=== PATIENT | female | born 1975 | race Caucasian/White ===

== ENCOUNTER 2017-05-10 14:46 | Emergency (ER) | payer BC, OTHER ==
[~2017-05-10] VITALS: Ht 157.5 cm; Wt 58.6 kg
[~2017-05-10 14:46] MED LIST: CARD240C6 PO; CYCL-36 PO; FENT25DI TD; LISI-363 PO; LORA-392 PO; PROM25TA5 PO; PROP40TA3 PO; PROT40TA PO; SULF500T35 PO; ZOFR4TAB3 SL
[2017-05-10 15:01] VITALS: BP 161/76; PULSE 116; RESP 18; TEMP 98.7; O2SAT 100
[2017-05-10] MEDS ORDERED: PANTOPRAZOLE SODIUM 40 MG VIAL IV PUSH ONE (15:15)
[2017-05-10] MEDS ORDERED: SODIUM CHLOR 0.9% 1000 ML INJ 1,000 ML IV ONE (15:15)
[2017-05-10] MEDS ORDERED: ONDANSETRON HCL 4 MG/2 ML VIAL IV PUSH ONE (15:15)
[2017-05-10] MEDS ORDERED: SULF500T3 PO (15:19)
[2017-05-10] MEDS ORDERED: PROT40TA PO (15:19)
[2017-05-10] MEDS ORDERED: PROP60TA PO (15:19)
[2017-05-10] MEDS ORDERED: CARD120T4 PO (15:19)
[2017-05-10] MEDS ORDERED: FENT50DI T-DERMAL (15:19)
[2017-05-10] MEDS ORDERED: CYCL1TAB29 PO (15:19)
[2017-05-10] MEDS ORDERED: PROM12.54 PO (15:19)
[2017-05-10] MEDS ORDERED: DIAZ5TAB PO (15:19)
[2017-05-10] MEDS ORDERED: LISI-515 PO (15:19)
[2017-05-10 15:34] LABS: AUTOMATED NEUTROPHIL # 2.3 TH/MM3 (1.8-7.7); BASOPHIL % 0.7 % (0.0-2.0); EOSINOPHIL # 0.1 TH/MM3 (0-0.4); EOSINOPHIL % 1.7 % (0.0-4.0); HEMATOCRIT 35.7 % (35.0-46.0); HEMO FLAGS DIFF FINAL; LYMPH % 47.7 % (9.0-44.0); LYMPHOCYTE # 2.6 TH/MM3 (1.0-4.8); MEAN CELL VOLUME 84.6 FL (80.0-100.0); MEAN CORPUSCULAR HEMOGLOBIN 27.2 PG (27.0-34.0); MEAN CORPUSCULAR HGB CONC 32.1 % (32.0-36.0); MONO % 6.1 % (0.0-8.0); NEUT % 43.8 % (16.0-70.0); PLATELET COUNT 157 TH/MM3 (150-450); RED BLOOD COUNT 4.22 MIL/MM3 (4.00-5.30); RED CELL DISTRIBUTION WIDTH 15.1 % (11.6-17.2); WHITE BLOOD COUNT 5.3 TH/MM3 (4.0-11.0)
[2017-05-10 15:36] VITALS: BP 149/94; PULSE 100; RESP 20; O2SAT 100; O2SAT 99
[2017-05-10 15:42] LABS: CHLORIDE 107 MEQ/L (98-107); POTASSIUM 3.7 MEQ/L (3.5-5.1); SODIUM (NA) 140 MEQ/L (136-145)
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
[2017-05-10 15:46] LABS: ANION GAP 9 MEQ/L (5-15); BICARBONATE 24.3 MEQ/L (21.0-32.0)
[2017-05-10 15:47] LABS: BLOOD UREA NITROGEN 13 MG/DL (7-18)
[2017-05-10 15:49] LABS: ALT (GPT) 14 U/L (10-53); AST (GOT) 7 U/L (15-37); GLOMERULAR FILTRATION RATE 101 ML/MIN (>89)
[2017-05-10 15:51] LABS: TOTAL BILIRUBIN ADULT 0.3 MG/DL (0.2-1.0)
[2017-05-10 15:52] LABS: ALKALINE PHOSPHATASE 66 U/L (45-117)
[2017-05-10] MEDS ORDERED: ZOFR4TAB3 SL (15:58)
== END 2017-05-10 16:14 | disposition home or self-care (01) ==
LOC: PHED 14:46
DX: R19.7 Diarrhea, unspecified (principal); R11.10 Vomiting, unspecified; R10.13 Epigastric pain
CPT/HCPCS: 80053; 83690; 85025; 96361; 96374; 96375; 99284; C9113; J2405; J7030

== ENCOUNTER 2017-05-15 05:03 | Emergency (ER) | payer BC ==
[~2017-05-15] VITALS: Ht 157.5 cm; Wt 54.5 kg
[~2017-05-15 05:03] MED LIST changes: +CARD120T4 PO; -CARD240C6 PO; -CYCL-36 PO; +CYCL1TAB29 PO; +DIAZ5TAB PO; -FENT25DI TD; +FENT50DI T-DERMAL; -LISI-363 PO; +LISI-515 PO; -LORA-392 PO; +PROM12.54 PO; -PROM25TA5 PO; -PROP40TA3 PO; +PROP60TA PO; +SULF500T3 PO; -SULF500T35 PO
[2017-05-15 05:05] VITALS: BP 129/77; PULSE 118; RESP 16; TEMP 97.9; O2SAT 99
[2017-05-15 05:35] VITALS: BP 102/74; PULSE 83; RESP 15; O2SAT 100
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
[2017-05-15] MEDS ORDERED: SODIUM CHLORIDE 0.9% FLUSH 10 ML FLUSH IV FLUSH PRN (05:45)
[2017-05-15] MEDS ORDERED: SODIUM CHLOR 0.9% 1000 ML INJ 1,000 ML IV ONE (05:45)
[2017-05-15 06:06] LABS: AUTOMATED NEUTROPHIL # 2.7 TH/MM3 (1.8-7.7); BASOPHIL % 0.5 % (0.0-2.0); EOSINOPHIL # 0.1 TH/MM3 (0-0.4); EOSINOPHIL % 2.1 % (0.0-4.0); HEMATOCRIT 40.8 % (35.0-46.0); HEMO FLAGS DIFF FINAL; LYMPH % 35.4 % (9.0-44.0); LYMPHOCYTE # 1.8 TH/MM3 (1.0-4.8); MEAN CELL VOLUME 87.2 FL (80.0-100.0); MEAN CORPUSCULAR HEMOGLOBIN 28.1 PG (27.0-34.0); MEAN CORPUSCULAR HGB CONC 32.3 % (32.0-36.0); MONO % 7.5 % (0.0-8.0); NEUT % 54.5 % (16.0-70.0); PLATELET COUNT 155 TH/MM3 (150-450); RED BLOOD COUNT 4.68 MIL/MM3 (4.00-5.30); RED CELL DISTRIBUTION WIDTH 16.4 % (11.6-17.2)
[2017-05-15 06:34] LABS: ANION GAP 9 MEQ/L (5-15); AST (GOT) 7 U/L (15-37); BICARBONATE 26.5 MEQ/L (21.0-32.0); BLOOD UREA NITROGEN 9 MG/DL (7-18); CHLORIDE 107 MEQ/L (98-107); GLOMERULAR FILTRATION RATE 96 ML/MIN (>89); POTASSIUM 3.7 MEQ/L (3.5-5.1); SODIUM (NA) 142 MEQ/L (136-145)
[2017-05-15 06:39] LABS: ALKALINE PHOSPHATASE 73 U/L (45-117); ALT (GPT) 15 U/L (10-53); TOTAL BILIRUBIN ADULT 0.3 MG/DL (0.2-1.0)
[2017-05-15 06:55] VITALS: BP_SYST 102
== END 2017-05-15 07:26 | disposition home or self-care (01) ==
LOC: NEPC 05:03
DX: R10.11 Right upper quadrant pain (principal); R11.2 Nausea with vomiting, unspecified; R19.7 Diarrhea, unspecified; G89.29 Other chronic pain; D64.9 Anemia, unspecified; I10 Essential (primary) hypertension; E11.9 Type 2 diabetes mellitus without complications; K21.9 Gastro-esophageal reflux disease without esophagitis; K85.90 Acute pancreatitis without necrosis or infection, unspecified
CPT/HCPCS: 80053; 83690; 85025; 96360; 99284; J7030

== ENCOUNTER 2017-05-20 09:33 | Inpatient (IN) | payer BC ==
[2017-05-20] VITALS (15 sets, daily range): BP systolic 72–128; BP diastolic 46–78; PULSE 68–108; RESP 16–20; TEMP 96–97.9; O2SAT 96–100
[~2017-05-20] VITALS: Ht 162.6 cm; Wt 64.1 kg
[2017-05-20] MEDS ORDERED: GABA300C5 PO (09:42)
[2017-05-20] MEDS ORDERED: SODIUM CHLOR 0.9% 1000 ML INJ 1,000 ML IV SCH (09:57)
[2017-05-20] MEDS ORDERED: ONDANSETRON HCL 4 MG/2 ML VIAL IVP ONE (10:00)
[2017-05-20] MEDS ORDERED: SODIUM CHLORIDE 0.9% FLUSH 10 ML FLUSH IV FLUSH PRN ×2 (10:00→13:45)
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
[2017-05-20 10:20] LABS: AUTOMATED NEUTROPHIL # 3.7 TH/MM3 (1.8-7.7); BASOPHIL # 0.1 TH/MM3 (0-0.2); BASOPHIL % 1.7 % (0.0-2.0); EOSINOPHIL # 0.1 TH/MM3 (0-0.4); HEMATOCRIT 34.3 % (35.0-46.0); HEMO FLAGS DIFF FINAL; LYMPH % 33.5 % (9.0-44.0); LYMPHOCYTE # 2.3 TH/MM3 (1.0-4.8); MEAN CORPUSCULAR HEMOGLOBIN 28.1 PG (27.0-34.0); MEAN CORPUSCULAR HGB CONC 32.2 % (32.0-36.0); MONO % 9.4 % (0.0-8.0); NEUT % 53.4 % (16.0-70.0); PLATELET COUNT 178 TH/MM3 (150-450); RED BLOOD COUNT 3.94 MIL/MM3 (4.00-5.30); WHITE BLOOD COUNT 6.9 TH/MM3 (4.0-11.0)
[2017-05-20 10:28] LABS: CHLORIDE 104 MEQ/L (98-107); POTASSIUM 4.9 MEQ/L (3.5-5.1); SODIUM (NA) 138 MEQ/L (136-145)
[2017-05-20 10:32] LABS: ANION GAP 7 MEQ/L (5-15); BICARBONATE 26.9 MEQ/L (21.0-32.0); BLOOD UREA NITROGEN 10 MG/DL (7-18)
[2017-05-20 10:35] LABS: ALT (GPT) 19 U/L (10-53); AST (GOT) 21 U/L (15-37); GLOMERULAR FILTRATION RATE 103 ML/MIN (>89)
[2017-05-20 10:37] LABS: TOTAL BILIRUBIN ADULT 0.4 MG/DL (0.2-1.0)
[2017-05-20 10:38] LABS: ALKALINE PHOSPHATASE 64 U/L (45-117)
--- NOTE | 2017-05-20 10:43 | RADRPT ---
EXAM DATE/TIME: 05/20/2017 10:25 [facility] COMPARISON: CHEST SINGLE AP, January 29, 2015, 14:42. INDICATIONS : Dizziness. Weakness. Altered mental status. MEDICAL HISTORY : Hypertension. SURGICAL HISTORY : None. ENCOUNTER: Initial ACUITY: 1 day PAIN SCORE: Non-responsive. LOCATION: Bilateral chest FINDINGS: A single view of the chest demonstrates the lungs to be symmetrically aerated without evidence of mas s, infiltrate or effusion. The cardiomediastinal contours are unremarkable. Osseous structures are intact. CONCLUSION: No evidence of acute cardiopulmonary disease. Tam Barber MD on May 20, 2017 at 10:41 Board Certified Radiologist. This report was verified electronically.
--- NOTE | 2017-05-20 11:07 | RADRPT ---
EXAM DATE/TIME: 05/20/2017 10:51 [facility] COMPARISON: CT ABDOMEN & PELVIS W/O CONTRAST, February 18, 2016, 17:43. INDICATIONS : Right upper quadrant pain. ORAL CONTRAST: No oral contrast ingested. RADIATION DOSE: 7.85 CTDIvol (mGy) MEDICAL HISTORY : Hypertension. Renal failre. Colitis. SURGICAL HISTORY : Cholecystectomy. Hysterectomy.Right inguinal hernia repair. ENCOUNTER: Initial ACUITY: 1 day PAIN SCALE: 5/10 LOCATION: Right upper quadrant TECHNIQUE: Volumetric scanning of the abdomen and pelvis was performed. Using automated exposure control and ad justment of the mA and/or kV according to patient size, radiation dose was kept as low as reasonably achievable to obtain optimal diagnostic quality images. DICOM format image data is available electro nically for review and comparison. FINDINGS: LOWER LUNGS: The visualized lower lungs are clear. LIVER: Homogeneous density without lesion. There is no dilation of the biliary tree. Previous cholecystecto my. Faint density again seen in the gallbladder fossa, presumably clips and/or suture material and un changed. No fluid collections.. SPLEEN: Normal size without lesion. PANCREAS: Within normal limits. KIDNEYS: Normal in size and shape. There is no mass, stone, or hydronephrosis. ADRENAL GLANDS: Within normal limits. VASCULAR: There is no aortic aneurysm. BOWEL/MESENTERY: The stomach, small bowel, and colon demonstrate no acute abnormality. There is no free intraperitone al air or fluid. Normal appendix. ABDOMINAL WALL: Within normal limits. RETROPERITONEUM: There is no lymphadenopathy. BLADDER: No wall thickening or mass. REPRODUCTIVE: Previous hysterectomy. No free fluid. INGUINAL: There is no lymphadenopathy or hernia. MUSCULOSKELETAL: No acute bony abnormality demonstrated. CONCLUSION: 1. No acute abnormality demonstrated. 2. Previous cholecystectomy and hysterectomy. Tam Barber MD on May 20, 2017 at 11:01 Board Certified Radiologist. This report was verified electronically.
[2017-05-20] MEDS ORDERED: SODIUM CHLOR 0.9% 1000 ML INJ 1,000 ML IV ONE (12:45)
[2017-05-20] MEDS ORDERED: NALOXONE HCL 0.4 MG/ML AMP IV PRN (13:45)
[2017-05-20] MEDS ORDERED: LACTULOSE SYRUP 20 GM/30 ML CUP PO PRN (14:00)
[2017-05-20] MEDS ORDERED: SENNOSIDES 8.6 MG TAB PO PRN (14:00)
[2017-05-20] MEDS ORDERED: ONDANSETRON HCL 4 MG/2 ML VIAL IVP PRN (14:00)
[2017-05-20] MEDS ORDERED: MAGNESIUM HYDROXIDE SUSP 30 ML CUP PO PRN (14:00)
[2017-05-20] MEDS ORDERED: ePHEDrine/NS 50 MG/5 ML SYR IV PUSH ONE ×2 (14:00)
[2017-05-20 14:55] LABS: BLOOD, URINE SMALL (NEG); GLUCOSE,URINE NEG (NEG); KETONE, URINE NEG (NEG); NITRITE,URINE POS (NEG); PH, URINE 5.5 (5.0-8.5)
[2017-05-20 15:00] LABS: METHOD OF COLLECTION CLEAN CATCH; URINE COLOR YELLOW (YELLW/STRAW)
[2017-05-20] MEDS ORDERED: ENOXAPARIN SODIUM 30 MG/0.3 ML SYRINGE SQ SCH (15:00)
[2017-05-20] MEDS: SODIUM CHLOR 0.9% 1000 ML INJ 1,000 ML IV SCH ×2 (15:00→22:41)
[2017-05-20] MEDS ORDERED: BISACODYL 10 MG SUPP RECTAL PRN (15:00)
[2017-05-20 15:01] LABS: BACTERIA, URINE MANY /hpf; COMMENT (UR) CULTURE INDICATED; CULTURE IF INDICATED CULTURE INDICATED; RBC, URINE 15-19 /hpf (0-3); SQUAMOUS EPITHELIAL CELL URINE > 8 /hpf (0-5)
[2017-05-20] MEDS ORDERED: diphenhydrAMINE HCL 50 MG/ML VIAL IM PRN (16:30)
[2017-05-20] MEDS ORDERED: ALPRAZolam 0.25 MG TAB PO PRN (16:45)
--- NOTE | 2017-05-20 16:50 | HHI.HP ---
[facility] Service [facility] Primary Care Physician Amira Camejo DO Admission Diagnosis Hypotension Diagnoses: Travel History International Travel<30 Days: No Contact w/Intl Traveler <30 Da: No Traveled to Known Affected Are: No History of Present Illness Mrs. Rogers is a 42-year-old female. She came into the emergency department after being found by police officers in parking lot at a hardware store. She reports she was sitting in her car because she felt ill and did not feel safe driving. Upon arrival she is found to be hypotensive. She is on multiple blood pressure medications secondary to history of hypertension. She is also on a fentanyl patch related to history of chronic abdominal pain from pancreatic divisum. The only recent medication she started his gabapentin. Gabapentin's unlikely to be a primary cause of her hypotension. Gabapentin could disrupt metabolic clearance of some of her blood pressure medications and may be contributory in this way. We discussed how it may be more beneficial to stop blood pressure medications than stop gabapentin. Fluid boluses provided in the ER. When she arrived into the ER her blood pressure were in the 70s systolic. When seen in the ER her blood pressures remained in the 80s, pressors initiated. I expect that through time the blood pressure medications should be metabolized and with holding them right now her blood pressure should improve through time. It is always possible that the cause of her hypotension is from some other etiology such as a bleed. This will be monitored for also. Review of Systems Constitutional: COMPLAINS OF: Fatigue, Dizziness, DENIES: Fever, Chills, Change in appetite Endocrine: DENIES: Heat/cold intolerance Eyes: DENIES: Blurred vision, Eye pain Ears, nose, mouth, throat: DENIES: Tinnitus, Hearing loss, Vertigo Respiratory: DENIES: Apneas, Cough, Wheezing, Sputum production Cardiovascular: DENIES: Chest pain, Palpitations, Syncope Gastrointestinal: DENIES: Abdominal pain, Black stools, Bloody stools Musculoskeletal: DENIES: Joint pain, Muscle aches, Stiffness Integumentary: DENIES: Abnormal pigmentation, Pruritus, Rash Hematologic/lymphatic: DENIES: Bruising Immunologic/allergic: DENIES: Eczema Neurologic: DENIES: Abnormal gait Psychiatric: DENIES: Anxiety, Confusion, Hallucinations Past Family Social History Past Medical History Pancreatic divisum General anxiety disorder Hypertension Chronic abdominal pain Past Surgical History Cholecystectomy Right inguinal hernia repair Left incisional hernia repair Reported Medications Reported Meds & Active Scripts Active Zofran Odt (Ondansetron Odt) 4 Mg Tab 4 Mg SL Q8HR PRN Reported Diazepam 5 Mg Tab 5 Mg PO TID PRN Fentanyl Patch 72 HR (Fentanyl) 50 Mcg/Hr Patch 50 Mcg T-DERMAL Q72H Remove old patch when new one placed. Promethazine (Promethazine HCl) 12.5 Mg Tab 25 Mg PO TID PRN Flexeril (Cyclobenzaprine HCl) 10 Mg Tab 10 Mg PO TID Protonix (Pantoprazole Sodium) 40 Mg Tab 40 Mg PO DAILY Sulfasalazine 500 Mg Tab 500 Mg PO Q6H Cardizem (Diltiazem HCl) 120 Mg Tab 240 Mg PO DAILY Propranolol (Propranolol HCl) 60 Mg Tab 60 Mg PO Q12HR Lisinopril 20 Mg Tab 20 Mg PO DAILY Allergies: Coded Allergies: Fish Containing Products (Verified Allergy, Severe, ANAPHYLAXIS, 05/20/17) ANAPHYLACTIC SHOCK diatrizoate meglumine (Verified Allergy, Severe, ANAPHYLAXIS, 05/20/17) gadobenic acid (Verified Allergy, Severe, ANAPHYLAXIS, 05/20/17) gadodiamide (Verified Allergy, Severe, ANAPHYLAXIS, 05/20/17) gadoteridol (Verified Allergy, Severe, ANAPHYLAXIS, 05/20/17) iodixanol (Verified Allergy, Severe, ANAPHYLAXIS, 05/20/17) iohexol (Verified Allergy, Severe, ANAPHYLAXIS, 05/20/17) zolpidem (Verified Allergy, Severe, RASH, 05/20/17) ketorolac (Verified Allergy, Intermediate, EPIGASTRIC PAIN, 05/20/17) Active Ordered Medications Administered Medications Medications (Trade) Dose Ordered Sig/Carlo Route PRN Reason Start Time Stop Time Status Last Admin Dose Admin Sodium Chloride 1,000 ml @ 150 mls/hr Q6H40M IV 05/20/17 13:36 05/20/17 15:00 Enoxaparin Sodium (Lovenox Inj) 30 mg Q24H SQ 05/20/17 15:00 05/20/17 15:07 Family History Father had coronary artery disease and had a CABG Mother had a history of hypertension Social History Patient smokes low-volume No alcohol abuse No drug abuse Physical Exam Vital Signs Vital Signs Date Time Temp Pulse Resp B/P (MAP) Pulse Ox O2 Delivery O2 Flow Rate FiO2 05/20/17 15:40 05/20/17 15:03 84 20 100/70 (80) 99 05/20/17 13:57 108 20 90/72 (78) 100 Room Air 05/20/17 13:23 68 20 87/64 (72) 99 05/20/17 12:49 68 20 81/46 (58) 98 05/20/17 12:33 68 20 72/48 (56) 96 05/20/17 11:48 92 20 79/56 (64) 98 05/20/17 11:10 94 20 83/63 (70) 100 05/20/17 10:18 97 20 98/62 (74) 98 05/20/17 10:17 98 05/20/17 09:39 97.9 108 20 128/68 (88) 97 05/20/17 09:37 97.9 108 20 128/68 (88) 97 Physical Exam GENERAL: NAD, A&Ox3 HEAD: Normocephalic. NECK: Supple, trachea midline. No lymphadenopathy. EYES: No scleral icterus. No injection or drainage. CARDIOVASCULAR: Regular rate and rhythm without murmurs, gallops, or rubs. RESPIRATORY: Breath sounds equal bilaterally. No accessory muscle use. GASTROINTESTINAL: Abdomen soft, non-tender, nondistended. MUSCULOSKELETAL: No cyanosis, or edema. SKIN: Warm and dry. NEURO: No focal neurological deficitis. Laboratory Laboratory Tests Test 05/20/17 10:10 05/20/17 14:50 White Blood Count 6.9 Red Blood Count 3.94 Hemoglobin 11.1 Hematocrit 34.3 Mean Corpuscular Volume 87.0 Mean Corpuscular Hemoglobin 28.1 Mean Corpuscular Hemoglobin Concent 32.2 Red Cell Distribution Width 16.0 Platelet Count 178 Mean Platelet Volume 10.2 Neutrophils (%) (Auto) 53.4 Lymphocytes (%) (Auto) 33.5 Monocytes (%) (Auto) 9.4 Eosinophils (%) (Auto) 2.0 Basophils (%) (Auto) 1.7 Neutrophils # (Auto) 3.7 Lymphocytes # (Auto) 2.3 Monocytes # (Auto) 0.7 Eosinophils # (Auto) 0.1 Basophils # (Auto) 0.1 CBC Comment DIFF FINAL Differential Comment Blood Urea Nitrogen 10 Creatinine 0.64 Random Glucose 86 Total Protein 7.1 Albumin 3.1 Calcium Level 8.8 Alkaline Phosphatase 64 Aspartate Amino Transf (AST/SGOT) 21 Alanine Aminotransferase (ALT/SGPT) 19 Total Bilirubin 0.4 Sodium Level 138 Potassium Level 4.9 Chloride Level 104 Carbon Dioxide Level 26.9 Anion Gap 7 Estimat Glomerular Filtration Rate 103 Troponin I LESS THAN 0.02 Lipase 44 Urine Collection Type CLEAN CATCH Urine Color YELLOW Urine Turbidity SLIGHT Urine pH 5.5 Urine Specific [place] 1.018 Urine Protein TRACE Urine Glucose (UA) NEG Urine Ketones NEG Urine Occult Blood SMALL Urine Nitrite POS Urine Bilirubin NEG Urine Leukocyte Esterase MOD Urine RBC 15-19 Urine WBC 25-49 Urine Squamous Epithelial Cells > 8 Urine Bacteria MANY Microscopic Urinalysis Comment CULTURE INDICATED Urine Collection Time 14:50 Date/Time Source Procedure Growth Status 05/20/17 14:50 Urine Clean Catch Urine Culture Pending Received Result Diagram: 05/20/17 1010 05/20/17 1010 Imaging Last Impressions Chest X-Ray 05/20/17 0000 Signed Impressions: Service Date/Time: Saturday, May 20, 2017 10:25 - CONCLUSION: No evidence of acute cardiopulmonary disease. Tam Barber MD Abdomen/Pelvis CT 05/20/17 0000 Signed Impressions: Service Date/Time: Saturday, May 20, 2017 10:51 - CONCLUSION: 1. No acute abnormality demonstrated. 2. Previous cholecystectomy and hysterectomy. Tam Barber MD Caprini VTE Risk Assessment Caprini VTE Risk Assessment: No/Low Risk (score <= 1) Caprini Risk Assessment Model Point Value = 1 Point Value = 2 Point Value = 3 Point Value = 5 Age 41-60 Minor surgery BMI > 25 kg/m2 Swollen legs Varicose veins or History of unexplained or recurrent spontaneous Oral contraceptives or hormone replacement Sepsis (< 1 month) Serious lung disease, including pneumonia (< 1 month) Abnormal pulmonary function Acute myocardial infarction Congestive heart failure (< 1 month) History of inflammatory bowel disease Medical patient at bed rest Age 61-74 Arthroscopic surgery Major open surgery (> 45 min) Laparoscopic surgery (> 45 min) Malignancy Confined to bed (> 72 hours) Immobilizing plaster cast Central venous access Age >= 75 History of VTE Family history of VTE Factor V Leiden Prothrombin [id number] Lupus anticoagulant Anticardiolipin antibodies Elevated serum homocysteine Heparin-induced thrombocytopenia Other congenital or acquired thrombophilia Stroke (< 1 month) Elective arthroplasty Hip, pelvis, or leg fracture Acute spinal cord injury (< 1 month) Prophylaxis Regimen Total Risk Factor Score Risk Level Prophylaxis Regimen 0-1 Low Early ambulation 2 Moderate Order ONE of the following: *Sequential Compression Device (SCD) *Heparin 5000 units SQ BID 3-4 Higher Order ONE of the following medications: *Heparin 5000 units SQ TID *Enoxaparin/Lovenox 40 mg SQ daily (WT < 150 kg, CrCl > 30 mL/min) *Enoxaparin/Lovenox 30 mg SQ daily (WT < 150 kg, CrCl > 10-29 mL/min) *Enoxaparin/Lovenox 30 mg SQ BID (WT < 150 kg, CrCl > 30 mL/min) AND/OR *Sequential Compression Device (SCD) 5 or more Highest Order ONE of the following medications: *Heparin 5000 units SQ TID (Preferred with Epidurals) *Enoxaparin/Lovenox 40 mg SQ daily (WT < 150 kg, CrCl > 30 mL/min) *Enoxaparin/Lovenox 30 mg SQ daily (WT < 150 kg, CrCl > 10-29 mL/min) *Enoxaparin/Lovenox 30 mg SQ BID (WT < 150 kg, CrCl > 30 mL/min) AND *Sequential Compression Device (SCD) Assessment and Plan Problem List: (1) Hypotension ICD Code: I95.9 - Hypotension Status: Acute (2) Abdominal pain ICD Code: R10.9 - Unspecified abdominal pain Status: Acute Assessment and Plan Assessment and plan 42-year-old female admitted secondary to hypotension Acute hypotension Start IV pressors to maintain blood pressures Wean IV pressors as blood pressures improve Most likely scenario secondary to chronic medication treatments Possible shifting metabolism secondary to gabapentin versus alternate etiology such as viral Monitor CBC Signs of bleeding are present consider GI workup and consult Pancreatic divisum Chronic Abdominal Pain Hold fentanyl patch As needed [place] for now Returned to baseline treatment when blood pressure stabilize General anxiety disorder As needed xanax Resume baseline treatments when BP stabilize Hypertension Hold all BP treatments Resume as needed when/if BPs normalize Physician Certification 2 Midnight Certification Type: Admission for Inpatient Services Order for Inpatient Services The services are ordered in accordance with Medicare regulations or non- Medicare payer requirements, as applicable. In the case of services not specified as inpatient-only, they are appropriately provided as inpatient services in accordance with the 2-midnight benchmark. Estimated LOS (days): 2 days is the estimated time the patient will need to remain in the hospital, assuming treatment plan goals are met and no additional complications. Post-Hospital Plan: Home Problem Qualifiers (1) Hypotension: Qualified Codes: I95.9 - Hypotension, unspecified (2) Abdominal pain: Qualified Codes: R10.84 - Generalized abdominal pain Mike Lorenzo MD May 20, 2017 16:49
[2017-05-20] MEDS ORDERED: NICOTINE 7 MG/24 HR PATCH T-DERMAL ONE (17:00)
[2017-05-20] MEDS: CYCLOBENZAPRINE HCL 10 MG TAB PO SCH (17:14)
[2017-05-20] MEDS: GABAPENTIN 300 MG CAP PO SCH (17:14)
[2017-05-20] MEDS ORDERED: diphenhydrAMINE HCL 50 MG/ML VIAL IV PUSH ONE (17:30)
[2017-05-20] MEDS: MIDODRINE 5 MG TAB PO SCH (17:34)
[2017-05-20] MEDS: ACETAMINOPHEN/HYDROcodone 325 MG/5 MG TAB PO PRN (17:45)
[2017-05-20] MEDS: DOCUSATE SODIUM 50 MG/SENNA 8.6 MG TAB PO SCH (21:00)
[2017-05-20] MEDS: SODIUM CHLORIDE 0.9% FLUSH 10 ML FLUSH IV FLUSH SCH (21:00)
[2017-05-21] MEDS: ACETAMINOPHEN/HYDROcodone 325 MG/5 MG TAB PO PRN ×2 (03:38→07:48)
[2017-05-21 04:00] VITALS: BP 118/74; PULSE 99; RESP 16; TEMP 96.6; O2SAT 99
[2017-05-21] MEDS: SODIUM CHLOR 0.9% 1000 ML INJ 1,000 ML IV SCH ×3 (05:56→21:21)
[2017-05-21] MEDS: MIDODRINE 5 MG TAB PO SCH (05:59)
[2017-05-21 06:10] LABS: AUTOMATED NEUTROPHIL # 4.4 TH/MM3 (1.8-7.7); BASOPHIL % 0.4 % (0.0-2.0); EOSINOPHIL # 0.1 TH/MM3 (0-0.4); EOSINOPHIL % 1.1 % (0.0-4.0); HEMO FLAGS DIFF FINAL; LYMPH % 21.9 % (9.0-44.0); LYMPHOCYTE # 1.3 TH/MM3 (1.0-4.8); MEAN CELL VOLUME 87.6 FL (80.0-100.0); MEAN CORPUSCULAR HEMOGLOBIN 28.3 PG (27.0-34.0); MEAN CORPUSCULAR HGB CONC 32.3 % (32.0-36.0); MONO % 6.5 % (0.0-8.0); NEUT % 70.1 % (16.0-70.0); PLATELET COUNT 134 TH/MM3 (150-450); RED BLOOD COUNT 3.88 MIL/MM3 (4.00-5.30); WHITE BLOOD COUNT 6.2 TH/MM3 (4.0-11.0)
[2017-05-21 06:54] LABS: ALKALINE PHOSPHATASE 55 U/L (45-117); ALT (GPT) 14 U/L (10-53); ANION GAP 5 MEQ/L (5-15); AST (GOT) 9 U/L (15-37); BICARBONATE 27.6 MEQ/L (21.0-32.0); BLOOD UREA NITROGEN 8 MG/DL (7-18); CHLORIDE 109 MEQ/L (98-107); GLOMERULAR FILTRATION RATE 103 ML/MIN (>89); SODIUM (NA) 142 MEQ/L (136-145); TOTAL BILIRUBIN ADULT 0.3 MG/DL (0.2-1.0)
[2017-05-21 08:23] VITALS: PULSE 117
[2017-05-21] MEDS: SODIUM CHLORIDE 0.9% FLUSH 10 ML FLUSH IV FLUSH SCH ×2 (08:43→21:00)
[2017-05-21] MEDS: DOCUSATE SODIUM 50 MG/SENNA 8.6 MG TAB PO SCH ×2 (08:47→21:21)
[2017-05-21] MEDS: PANTOPRAZOLE SOD 40 MG DELAYED RELEASE TAB PO SCH (08:47)
[2017-05-21] MEDS: CYCLOBENZAPRINE HCL 10 MG TAB PO SCH ×3 (08:47→18:44)
[2017-05-21] MEDS: GABAPENTIN 300 MG CAP PO SCH ×3 (08:47→18:44)
[2017-05-21] MEDS: NICOTINE 7 MG/24 HR PATCH T-DERMAL SCH (08:48)
[2017-05-21] MEDS ORDERED: REMOVE OLD PATCH T-DERMAL SCH (09:00)
[2017-05-21] MEDS ORDERED: diphenhydrAMINE HCL 50 MG/ML VIAL IV PUSH ONE (09:00)
[2017-05-21] MEDS ORDERED: fentaNYL 50 MCG/HR PATCH T-DERMAL SCH (09:00)
[2017-05-21] MEDS ORDERED: DIAZEPAM 5 MG TAB PO PRN (09:00)
[2017-05-21 12:00] VITALS: BP 123/85; PULSE 106; RESP 18; TEMP 98.8; O2SAT 100
[2017-05-21] MEDS ORDERED: cefTRIAXone INJ 1,000 MG in SODIUM CHLORIDE 0.9% INJ 100 ML IV SCH (13:00)
[2017-05-21] MEDS: LACTOBACILLUS ACIDOPHILUS TAB PO SCH ×2 (13:10→18:44)
[2017-05-21] MEDS: HYDROmorphone HCL PF 1 MG/ML VIAL IV PUSH PRN ×2 (13:18→18:45)
[2017-05-21 13:34] LABS: BLOOD, URINE LARGE (NEG); GLUCOSE,URINE NEG (NEG); KETONE, URINE NEG (NEG); NITRITE,URINE NEG (NEG)
[2017-05-21 13:41] LABS: METHOD OF COLLECTION CLEAN CATCH; URINE COLOR STRAW (YELLW/STRAW)
[2017-05-21 13:42] LABS: COMMENT (UR) CULTURE INDICATED; CULTURE IF INDICATED CULTURE INDICATED
--- NOTE | 2017-05-21 14:37 | EKG ---
Date Performed: 05/20/2017 Time Performed: 10:22:12 PTAGE: 42 years EKG: Sinus rhythm NORMAL ECG Compared to prior tracing no significant change PREVIOUS TRACING : 01/29/2015 13.23 DOCTOR: Niko Rodriguez Interpretating Date/Time 05/21/2017 14:33:39
--- NOTE | 2017-05-21 15:18 | HHI.PR ---
Subjective Remarks Onset of lower abdominal pain today. She also had one episode of hematuria. UTI may be present. Antibiotics initiated. Urinalysis sent. Blood pressures have improved. Patient also reports a history of kidney stones and requests further workup for possible kidney stone. Objective Vital Signs Date Time Temp Pulse Resp B/P (MAP) Pulse Ox O2 Delivery O2 Flow Rate FiO2 05/21/17 13:56 16 05/21/17 12:00 98.8 106 18 123/85 (98) 100 05/21/17 10:55 18 05/21/17 08:47 18 05/21/17 08:23 117 05/21/17 04:00 96.6 99 16 118/74 (89) 99 05/20/17 22:00 96.0 88 16 91/70 (77) 96 05/20/17 20:00 96.9 98 20 110/78 (89) 98 05/20/17 20:00 97 05/20/17 16:00 96.8 87 18 104/73 (83) 96 05/20/17 15:40 05/20/17 15:34 90 I/O 05/20/17 05/20/17 05/20/17 05/21/17 05/21/17 05/21/17 07:00 15:00 23:00 07:00 15:00 23:00 Intake Total 1713 ml 1020 ml 1000 ml Balance 1713 ml 1020 ml 1000 ml Intake Oral 300 ml 120 ml IV Total 1413 ml 900 ml 1000 ml # Voids 2 2 # Bowel Movements 0 Result Diagram: 05/21/17 0540 05/21/17 0540 Objective Remarks GENERAL: NAD, A&Ox3 HEAD: Normocephalic. NECK: Supple, trachea midline. No lymphadenopathy. EYES: No scleral icterus. No injection or drainage. CARDIOVASCULAR: Regular rate and rhythm without murmurs, gallops, or rubs. RESPIRATORY: Breath sounds equal bilaterally. No accessory muscle use. GASTROINTESTINAL: Abdomen soft, non-tender, nondistended. MUSCULOSKELETAL: No cyanosis, or edema. SKIN: Warm and dry. NEURO: No focal neurological deficitis. A/P Problem List: (1) Hypotension ICD Code: I95.9 - Hypotension Status: Acute (2) Abdominal pain ICD Code: R10.9 - Unspecified abdominal pain Status: Acute (3) Hematuria ICD Code: R31.9 - Hematuria, unspecified Assessment and Plan Assessment and plan 42-year-old female admitted secondary to hypotension Hematuria Evaluate with ultrasound of kidneys ureters and bladder Screen for renal stones or structural abnormality There is a possible correlation with hypotension from yesterday however there is no evidence of renal failure today Continue to monitor renal function UTI Rocephin started Follow urine cultures Acute hypotension Resolved Wean IV hydration Stop midodrine Monitor for any recurrence Transition back to baseline benzodiazepines and narcotic use No evidence of blood loss on CBC but hematuria is present and UTI appears present UTI may have been contributory Pancreatic divisum Chronic Abdominal Pain Continue fentanyl patch General anxiety disorder Resume Valium Hypertension Hold all BP treatments Follow BPs Problem Qualifiers (1) Hypotension: Qualified Codes: I95.9 - Hypotension, unspecified (2) Abdominal pain: Qualified Codes: R10.84 - Generalized abdominal pain Mike Lorenzo MD May 21, 2017 15:18
[2017-05-21 16:00] VITALS: BP 109/87; PULSE 112; RESP 16; TEMP 98.5; O2SAT 99
--- NOTE | 2017-05-21 17:57 | RADRPT ---
EXAM DATE/TIME: 05/21/2017 15:01 [facility] COMPARISON: No previous studies available for comparison. INDICATIONS : Hematuria. MEDICAL HISTORY : Hypertension. Gastroesophageal reflux disease. Degenerative disc disease. Headache. Migraine. Pneum onia. Ulcer. Pancreatitis. Endometriosis. Ovarian cysts. Renal disease. Renal failure. Kidney stones. Urinary tract infection. Diabetes. Depression. Claustrophobia. Anemia. Hepatitis. SURGICAL HISTORY : Tonsillectomy. Cholecystectomy. Hysterectomy. Cervical cone biopsy. Right breast biopsy. Exploratory laparoscopy. ENCOUNTER: Initial ACUITY: 1 day PAIN SCORE: 7/10 LOCATION: Bilateral flank MEASUREMENTS: RIGHT KIDNEY: 12.1 x 4.6 x 4.0 cm LEFT KIDNEY: 11.6 x 5.4 x 5.6 cm FINDINGS: RIGHT KIDNEY: Mild hydronephrosis. No evidence of mass. No stones. LEFT KIDNEY: Renal cortex is normal in thickness and echotexture. No hydronephrosis, stone, or mass. BLADDER: Within normal limits given the degree of distension. CONCLUSION: Mild right hydronephrosis. Tam López MD on May 21, 2017 at 17:53 Board Certified Radiologist. This report was verified electronically.
[2017-05-21 20:00] VITALS: BP 104/75; PULSE 114; PULSE 115; RESP 12; TEMP 98.9; O2SAT 99
[2017-05-22] VITALS: BP 109/84; PULSE 118; RESP 20; TEMP 98; O2SAT 98
[2017-05-22] MEDS: HYDROmorphone HCL PF 1 MG/ML VIAL IV PUSH PRN (01:11)
[2017-05-22 04:00] VITALS: BP 110/79; PULSE 129; RESP 18; TEMP 99.3; O2SAT 97
[2017-05-22] MEDS: DOCUSATE SODIUM 50 MG/SENNA 8.6 MG TAB PO SCH (08:23)
[2017-05-22] MEDS: GABAPENTIN 300 MG CAP PO SCH (08:23)
[2017-05-22] MEDS: CYCLOBENZAPRINE HCL 10 MG TAB PO SCH (08:23)
[2017-05-22] MEDS: PANTOPRAZOLE SOD 40 MG DELAYED RELEASE TAB PO SCH (08:23)
[2017-05-22] MEDS: LACTOBACILLUS ACIDOPHILUS TAB PO SCH (08:24)
[2017-05-22] MEDS: NICOTINE 7 MG/24 HR PATCH T-DERMAL SCH (08:24)
[2017-05-22 09:01] VITALS: BP 122/80; PULSE 119; RESP 18; TEMP 99; O2SAT 95
[2017-05-22] MEDS ORDERED: LACTTAB8 PO (10:20)
[2017-05-22] MEDS ORDERED: BACT800T5 PO (10:20)
--- NOTE | 2017-05-22 10:24 | HHI.DS ---
Discharge Summary Admission Date May 20, 2017 at 13:40 Discharge Date: May 22, 2017 Admitting Diagnosis Hypotension (1) Hypotension ICD Code: I95.9 - Hypotension Diagnosis: Principal Status: Acute (2) Abdominal pain ICD Code: R10.9 - Unspecified abdominal pain Diagnosis: Principal Status: Acute Procedures none Brief History - From Admission Mrs. Rogers is a 42-year-old female. She came into the emergency department after being found by police officers in parking lot at a hardware store. She reports she was sitting in her car because she felt ill and did not feel safe driving. Upon arrival she is found to be hypotensive. She is on multiple blood pressure medications secondary to history of hypertension. She is also on a fentanyl patch related to history of chronic abdominal pain from pancreatic divisum. The only recent medication she started his gabapentin. Gabapentin's unlikely to be a primary cause of her hypotension. Gabapentin could disrupt metabolic clearance of some of her blood pressure medications and may be contributory in this way. We discussed how it may be more beneficial to stop blood pressure medications than stop gabapentin. Fluid boluses provided in the ER. When she arrived into the ER her blood pressure were in the 70s systolic. When seen in the ER her blood pressures remained in the 80s, pressors initiated. I expect that through time the blood pressure medications should be metabolized and with holding them right now her blood pressure should improve through time. It is always possible that the cause of her hypotension is from some other etiology such as a bleed. This will be monitored for also. CBC/BMP: 05/21/17 0540 05/21/17 0540 Significant Findings Laboratory Tests Test 05/20/17 10:10 05/20/17 14:50 05/21/17 05:40 05/21/17 13:20 Red Blood Count 3.94 MIL/MM3 (4.00-5.30) 3.88 MIL/MM3 (4.00-5.30) Hemoglobin 11.1 GM/DL (11.6-15.3) 11.0 GM/DL (11.6-15.3) Hematocrit 34.3 % (35.0-46.0) 34.0 % (35.0-46.0) Monocytes (%) (Auto) 9.4 % (0.0-8.0) Albumin 3.1 GM/DL (3.4-5.0) 2.5 GM/DL (3.4-5.0) Troponin I LESS THAN 0.02 NG/ML Lipase 44 U/L (73-393) Urine Occult Blood SMALL (NEG) LARGE (NEG) Urine Nitrite POS (NEG) Urine Leukocyte Esterase MOD (NEG) MOD (NEG) Urine RBC 15-19 /hpf (0-3) 50-99 /hpf (0-3) Urine WBC 25-49 /hpf (0-5) 25-49 /hpf (0-5) Urine Squamous Epithelial Cells > 8 /hpf (0-5) 6-8 /hpf (0-5) Urine Bacteria MANY /hpf (NONE) Platelet Count 134 TH/MM3 (150-450) Neutrophils (%) (Auto) 70.1 % (16.0-70.0) Total Protein 5.7 GM/DL (6.4-8.2) Calcium Level 8.2 MG/DL (8.5-10.1) Aspartate Amino Transf (AST/SGOT) 9 U/L (15-37) Chloride Level 109 MEQ/L (98-107) Urine Turbidity MOD (CLEAR) Urine Protein 30 mg/dL (NEG-TRACE) Urine WBC Clumps MOD (NONE) Hospital Course Mrs. Rogers is a 42-year-old female. She was admitted secondary to hypotension. She was found to have a urinary tract infection in the may have been contributory. She is on 3 different blood pressure medications at baseline and also takes narcotics (fentanyl patch) and Valium. Combination of all these post metabolic changes, certainly admitted with midodrine for support in the first 24 hours. Yesterday she and acute onset of lower abdominal pain and diarrhea. Ultrasound was performed of the bilateral kidneys, ureters, and bladder. Kidney stones or acute changes. There is mild hydronephrosis of the right kidney which could also be secondary to her urinary tract infection. She is feeling better today and medically stable for discharge. Urine cultures have resulted with staph aureus and sensitivities to Bactrim, so this has been elected as a treatment. Pt Condition on Discharge: Stable Discharge Disposition: Discharge Home Discharge Time: <= 30 minutes Discharge Instructions DIET: Follow Instructions for: As Tolerated, No Restrictions Activities you can perform: Regular-No Restrictions Follow up Referrals: PCP Follow-up - 1 Week New Medications: Lactobacillus Acidophilus (Lactobacillus Acidophilus) 1 Billion Cell Tab 1 TAB PO TIDAC for Nutritional Supplement, #30 TAB 0 Refills Sulfamethoxazole-Trimethoprim (Bactrim DS) 800-160 Mg Tab 1 TAB PO BID for Infection, #16 TAB 0 Refills Continued Medications: Cyclobenzaprine (Flexeril) 10 Mg Tab 10 MG PO TID for Muscle Spasm, #90 TAB 0 Refills Diazepam (Diazepam) 5 Mg Tab 5 MG PO TID PRN for ANXIETY, TAB 0 Refills Diltiazem (Cardizem) 120 Mg Tab 240 MG PO DAILY for Angina, #120 TAB 0 Refills Fentanyl Patch 72 HR (Fentanyl Patch 72 HR) 50 Mcg/Hr Patch 50 MCG T-DERMAL Q72H for Pain Management, #10 PATCH 0 Refills Remove old patch when new one placed. Gabapentin (Gabapentin) 300 Mg Cap 300 MG PO TID, #90 CAP 0 Refills Ondansetron Odt (Zofran Odt) 4 Mg Tab 4 MG SL Q8HR PRN for Nausea/Vomiting, #10 TAB 0 Refills Pantoprazole (Protonix) 40 Mg Tab 40 MG PO DAILY for Reflux, #30 TAB 0 Refills Promethazine (Promethazine) 12.5 Mg Tab 25 MG PO TID PRN for NAUSEA OR VOMITING, TAB 0 Refills Sulfasalazine (Sulfasalazine) 500 Mg Tab 500 MG PO Q6H, #120 TAB 0 Refills Discontinued Medications: Lisinopril (Lisinopril) 20 Mg Tab 20 MG PO DAILY, #30 TAB 0 Refills Propranolol (Propranolol) 60 Mg Tab 60 MG PO Q12HR, #60 TAB 0 Refills Mike Lorenzo MD May 22, 2017 10:24
[2017-05-24] MEDS ORDERED: REMOVE OLD DURAGESIC (FENTANYL) PATCH T-DERMAL SCH (09:00)
== END 2017-05-22 11:13 | disposition home or self-care (01) | DRG 315 ==
LOC: PHED 09:33 → PHEDA 13:30 → OBSVTOIN 13:40 → PH3B 15:34
PROVIDERS: ADMIT Hospitalist; ATTEND Hospitalist
DX: I95.9 Hypotension, unspecified (principal); N39.0 Urinary tract infection, site not specified; Q45.3 Other congenital malformations of pancreas and pancreatic duct; I10 Essential (primary) hypertension; E11.9 Type 2 diabetes mellitus without complications; B95.61 Methicillin susceptible Staphylococcus aureus infection as the cause of diseases classified elsewhere; K21.9 Gastro-esophageal reflux disease without esophagitis; F32.9 Major depressive disorder, single episode, unspecified; G89.29 Other chronic pain; R10.9 Unspecified abdominal pain; F17.210 Nicotine dependence, cigarettes, uncomplicated; R31.9 Hematuria, unspecified; F41.1 Generalized anxiety disorder; Z87.442 Personal history of urinary calculi
CPT/HCPCS: 71010; 74176; 76775; 80053; 81001; 83690; 84484; 85025; 86403; 87086; 87186; 93005; 96361; 96374; J0696; J1170; J1200; J1650; J2405; J7030

== ENCOUNTER 2017-05-29 18:24 | Emergency (ER) | payer BC ==
[~2017-05-29] VITALS: Ht 157.5 cm; Wt 55.3 kg
[~2017-05-29 18:24] MED LIST changes: +BACT800T5 PO; +GABA300C5 PO; +LACTTAB8 PO; -LISI-515 PO; -PROP60TA PO
[2017-05-29 18:41] VITALS: BP 126/86; PULSE 106; RESP 20; TEMP 98.6; O2SAT 99
[2017-05-29] MEDS ORDERED: PROP60TA PO (19:28)
[2017-05-29] MEDS ORDERED: ESTR2TAB4 PO (19:28)
[2017-05-29] MEDS ORDERED: LISI-515 PO (19:28)
[2017-05-29] MEDS ORDERED: SODIUM CHLOR 0.9% 1000 ML INJ 1,000 ML IV SCH (20:10)
[2017-05-29] MEDS ORDERED: MORPHINE SULFATE 4 MG/ML INJ IV PUSH ONE (20:15)
[2017-05-29] MEDS ORDERED: ONDANSETRON HCL 4 MG/2 ML VIAL IVP ONE (20:15)
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
[2017-05-29 20:35] LABS: BLOOD, URINE NEG (NEG); GLUCOSE,URINE NEG (NEG); KETONE, URINE NEG (NEG); NITRITE,URINE NEG (NEG); PH, URINE 5.5 (5.0-8.5)
[2017-05-29 20:36] LABS: AUTOMATED NEUTROPHIL # 2.7 TH/MM3 (1.8-7.7); BASOPHIL # 0.1 TH/MM3 (0-0.2); EOSINOPHIL # 0.2 TH/MM3 (0-0.4); EOSINOPHIL % 2.4 % (0.0-4.0); HEMATOCRIT 32.6 % (35.0-46.0); HEMO FLAGS DIFF FINAL; LYMPH % 42.6 % (9.0-44.0); LYMPHOCYTE # 2.7 TH/MM3 (1.0-4.8); MEAN CELL VOLUME 84.5 FL (80.0-100.0); MEAN CORPUSCULAR HEMOGLOBIN 27.7 PG (27.0-34.0); MEAN CORPUSCULAR HGB CONC 32.7 % (32.0-36.0); PLATELET COUNT 204 TH/MM3 (150-450); RED BLOOD COUNT 3.86 MIL/MM3 (4.00-5.30); RED CELL DISTRIBUTION WIDTH 15.2 % (11.6-17.2); WHITE BLOOD COUNT 6.3 TH/MM3 (4.0-11.0)
[2017-05-29 20:41] LABS: URINE COLOR YELLOW (YELLW/STRAW)
[2017-05-29 20:42] LABS: COMMENT (UR) CULTURE INDICATED; CULTURE IF INDICATED CULTURE INDICATED; MUCUS URINE FEW /lpf (OCC); RBC, URINE 0-3 /hpf (0-3); SQUAMOUS EPITHELIAL CELL URINE 0-5 /hpf (0-5)
[2017-05-29] MEDS ORDERED: diphenhydrAMINE HCL 50 MG/ML VIAL IV PUSH ONE (20:45)
[2017-05-29 20:46] VITALS: BP 109/69; PULSE 93; RESP 16; TEMP 97.9; O2SAT 100
[2017-05-29 20:46] LABS: CHLORIDE 105 MEQ/L (98-107); POTASSIUM 3.6 MEQ/L (3.5-5.1); SODIUM (NA) 137 MEQ/L (136-145)
[2017-05-29 20:50] LABS: ANION GAP 8 MEQ/L (5-15); BICARBONATE 23.6 MEQ/L (21.0-32.0); BLOOD UREA NITROGEN 22 MG/DL (7-18)
[2017-05-29 20:53] LABS: ALT (GPT) 19 U/L (10-53); AST (GOT) 8 U/L (15-37); GLOMERULAR FILTRATION RATE 74 ML/MIN (>89)
[2017-05-29 20:54] LABS: TOTAL BILIRUBIN ADULT 0.1 MG/DL (0.2-1.0)
[2017-05-29 20:56] LABS: ALKALINE PHOSPHATASE 82 U/L (45-117)
--- NOTE | 2017-05-29 21:14 | RADRPT ---
EXAM DATE/TIME: 05/29/2017 20:31 [facility] COMPARISON: CHEST SINGLE AP, May 20, 2017, 10:25. INDICATIONS : Chest and abdomen pain since this morning. MEDICAL HISTORY : Hypertension. Gastroesophageal reflux disease. Degenerative disc disease. SURGICAL HISTORY : Tonsillectomy. Cholecystectomy. Hysterectomy. Cervical cone biopsy. Right breast ENCOUNTER: Initial ACUITY: 1 day PAIN SCORE: 10/10 LOCATION: Bilateral Abdomen FINDINGS: A single view of the chest demonstrates the lungs to be symmetrically aerated without evidence of mas s, infiltrate or effusion. The cardiomediastinal contours are unremarkable. Osseous structures are intact. CONCLUSION: No evidence of acute cardiopulmonary disease. Tam Barber MD on May 29, 2017 at 21:12 Board Certified Radiologist. This report was verified electronically.
[2017-05-29] MEDS ORDERED: SODIUM CHLORID 0.9% 500 ML INJ 500 ML IV ONE (21:15)
[2017-05-29 21:20] VITALS: BP 104/66; PULSE 92; RESP 16; O2SAT 100
[2017-05-29 22:30] VITALS: BP 97/56
--- NOTE | 2017-05-30 12:07 | EKG ---
Date Performed: 05/29/2017 Time Performed: 20:23:35 PTAGE: 42 years EKG: NORMAL Sinus rhythm NONSPECIFIC ANTERIOR T-WAVE ABNORMALITY SLIGHT T-WAVE CHANGES ARE NEW BORDERLINE ECG PREVIOUS TRACING : 05/20/2017 10.22 DOCTOR: Niko Rodriguez Interpretating Date/Time 05/30/2017 12:06:00
== END 2017-05-29 22:30 | disposition home or self-care (01) ==
LOC: PHED 18:24
DX: G89.4 Chronic pain syndrome (principal); K51.90 Ulcerative colitis, unspecified, without complications; K21.9 Gastro-esophageal reflux disease without esophagitis; I10 Essential (primary) hypertension; R94.31 Abnormal electrocardiogram [ECG] [EKG]
CPT/HCPCS: 71010; 80053; 80307; 81001; 83605; 83690; 84484; 85025; 87086; 93005; 96361; 96374; 96375; 99285; J1200; J2270; J2405; J7030; J7040